=== PATIENT | female | born 1960 | race Caucasian/White ===

== ENCOUNTER 2017-03-11 20:32 | Inpatient (IN) ==
--- NOTE | 2017-03-11 21:08 | Emergency Department Note ---
Radha Velázquez Brittany, am scribing for, and in the presence of, Timi Waldrop MD 21:04. Palma Velázquez Charles R, MD, personally performed the services described in this documentation, ascribed by Zuleima Garcia in my presence, and it is both accurate and complete . Arrival - Arrival Chief Complaint: Abdominal / Flank Pain Stated Complaint: abd pain ED Nursing Triage Note: transfer from [facility] via ems with dx of early appendicitis. was given zofran 8mg, dilaudid 2mg [employer] and zosyn 3,375 infusing upon arrival to er. Mode of Arrival: Stretcher Limitations: No Limitations Source: Patient Time Seen by Provider: 03/11/17 20:50 - History of Present Illness HPI Narrative: This is a 56 y/o white female,who presents to the ED by EMS for further evaluation of acute appendicitis. She was transferred from [facility] ER. She notes abdominal pain which started yesterday. She notes vomiting but is afebrile. Per EMS, pt was given 8mg Zofran, 2MG Dilaudid and 3,375 infusing Zosyn en route. Pt has no other complaints/pain in the ED at this time. Pt has a PMHx of recurring UTIs, liver problems, pancreatitis, anemia, back/neck problems, HTN, and dyslipidemia. Pt has had a cholecystectomy, EGD, colonoscopy , and . Pt has a family medical Hx of cancer, diabetes, heart disease, HTN, and stroke. Onset (ago): day(s) (Started yesterday) Consistency: constant Severity: moderate, severe Allergies/Adverse Reactions: Allergies Allergy/AdvReac Type Severity Reaction Status Date / Time No Known Allergies Allergy Verified 04/06/15 12:21 Home Medications: Home Medications Medication Instructions Recorded Confirmed Type ALPRAZolam [Xanax] 1 mg PO DAILY 04/06/15 06/08/15 History Atorvastatin [Lipitor] 20 mg PO BEDTIME 04/06/15 06/08/15 History Citalopram [CeleXA] 20 mg PO DAILY 04/06/15 06/08/15 History Hydrocodone/Acetaminophen [Lorcet 1 each PO BID PRN 04/06/15 06/08/15 History Hd 10-325 mg Tablet] Lisinopril [Prinivil] 10 mg PO DAILY 04/06/15 06/08/15 History Ondansetron Odt Tab [Zofran Odt] 4 mg PO Q6H 04/06/15 06/08/15 History Hydrocodone/Acetaminophen [Lorcet 1 each PO Q6H 06/08/15 06/08/15 History Hd 10-325 mg Tablet] Review of System - Review of System 12 point system: reviewed and no additional remarkable complaints except as stated - Review of System Constitutional: Absent: fever Gastrointestinal: Present: abdominal pain, nausea, vomiting Medical,Surgical,& Family Hx - Medical History Cardio: History of: Hypertension No history of: ID Psychological: History of: Anxiety Disorders, Depression Neurology: No history of: Seizures Endocrine: History of: Dyslipidemia Genitourinary: History of: Recurring Urinary Tract Infections Gastrointestinal: History of: Gastrointestinal Bleed, Liver Problems, Pancreatitis, Gastrointestinal Cancer Musculoskeletal: History of: Back/Neck Problems (BACK), Musculoskeletal Problems (arthritis in hands) Hematology: History of: Anemia No history of: Blood Transfusion Reaction Other: No history of: Anesthesia Reactions - Surgical History Cardiac Surgeries: Patient Denies: Cardiac Catheterization Abdominal Surgeries: Surgical HX of: Cholecystectomy, Colonoscopy, EGD Patient denies: Appendectomy Reproductive Surgeries: Surgical HX of;: Section Orthopedic Surgeries: Patient denies;: Orthopedic Surgery - Family History Family History: Reports;: Family Cancer (brother-unknown cancer), Family Diabetes (FAMILY), Family Heart Disease (FATHER,MOTHER), Family Hypertension, Family Stroke (FATHER,BROTHER) - Social History Smoking Status: Never smoker Frequency of Alcohol Use: None Type of Drug Use: None Exam Vital Signs: Vital Signs Temperature 97.6 F 03/11/17 20:39 Pulse Rate 67 03/11/17 20:39 Respiratory Rate 15 03/11/17 20:39 Blood Pressure 160/85 03/11/17 20:39 O2 Sat by Pulse Oximetry 97 03/11/17 20:39 - General General appearance: alert, in no apparent distress - Head Head exam: Present: atraumatic, normocephalic, normal inspection - Eye Eye exam: Present: normal appearance, PERRL, EOMI. Absent: nystagmus, miosis, mydriasis - ENT ENT exam: Present: normal exam, normal oropharynx, mucous membranes moist, TM's normal bilaterally, normal external ear exam - Neck Neck exam: Present: normal inspection, full ROM, trachea midline. Absent: tenderness, meningismus, lymphadenopathy, thyromegaly - Chest Chest inspection: Present: normal inspection, symmetric chest wall rise. Absent : tenderness, rash, abscess - Respiratory Respiratory exam: Present: normal lung sounds bilaterally. Absent: prolonged expiratory phase, rales, respiratory distress, rhonchi, stridor, wheezes - Cardiovascular Cardiovascular exam: Present: regular rate, normal rhythm, normal heart sounds. Absent: murmur, rubs, gallop, clicks - Abdominal Exam Abdominal exam: Present: soft, tenderness (RLQ tenderness), normal bowel sounds , tenderness at McBurney's Point. Absent: distention, guarding, rebound, rigidity, Paulino's sign - Rectal Exam Rectal exam: Present: deferred - Extremities Exam Extremities exam: Present: normal inspection, full ROM, normal capillary refill. Absent: tenderness, pedal edema, joint swelling, calf tenderness - Back Exam Back exam: Present: normal inspection, full ROM. Absent: tenderness, muscle spasm, rashes - Neurological Exam Neurological exam: Present: alert, oriented X3, CN II-XII intact. Absent: motor sensory deficit - Psychiatric Psychiatric exam: Present: normal affect, normal mood. Absent: depressed, agitated, anxious, flat affect, manic - Skin Skin exam: Present: warm, dry, intact, normal color. Absent: rash, cyanosis, diaphoresis, erythema, pallor, mottled Course - Consultations Consultation #1: Dr. Dawkins will admit patient Time: 21:09 Results - Labs Lab Results: I have reviewed the patients labs Labs: All labs and CT scan was reviewed from previous facility Disposition Clinical Impression: Abdominal pain, Acute appendicitis Case discussed with: patient Disposition: Still a Patient Condition: Stable Time of Disposition: 21:10
[2017-03-11] MEDS ORDERED: HYDROmorphone 2 MG/1 ML VIAL ONE (22:11)
[2017-03-11] MEDS ORDERED: HYDROmorphone 2 MG/1 ML VIAL IV ONE (22:15)
[2017-03-11] MEDS ORDERED: ACETAMINOPHEN 325 MG TABLET PO PRN (22:40)
[2017-03-11] MEDS ORDERED: ONDANSETRON 4 MG/2 ML VIAL IV PRN (22:40)
[2017-03-11] MEDS: SODIUM CHLORIDE 0.9% 1,000 ML IV SCH (23:44)
[2017-03-11] MEDS: PIPERACILLIN/TAZOBACTAM 3,375 MG in SODIUM CHLORIDE 0.9% 100 ML IV SCH (23:47)
[2017-03-12] MEDS ORDERED: ALPRAZolam 0.5 MG TABLET PO PRN (01:08)
--- NOTE | 2017-03-12 01:16 | General Surg History&Physical ---
Assessment and Plan (1) Acute appendicitis Status: Acute Assessment and plan: This patient has a clinical diagnosis of acute appendicitis. She has some abnormalities in her appendix on CT scan she is focally tender in the right lower quadrant. I do not see that he urinalysis was performed. I will order this to make sure we are not dealing with any pathology but I think we need to at least do a diagnostic laparoscopy and plan on removing the appendix. I have discussed this with the patient and recommended laparoscopic appendectomy as well as diagnostic laparoscopy. I discussed the risks, benefits, and alternatives of the operation, and the expected outcomes have been reviewed. The patient would like to proceed with the operation. She will be treated with antibiotics tonight and this will be done in the morning. Current Visit: Yes History of Present Illness Chief complaint: Abdominal pain History of present illness: Ms. Quesada is a 56 year old female with history of sphincter of Oddi dysfunction that has been treated with ERCP and sphincterotomy by Dr. Myers in the past who presents with 2 days of worsening right lower quadrant pain and [facility] an outside [facility]. CT scan performed revealed stable chronic dilation of the bile duct with intrahepatic ductal dilation and also had the findings of a dilated fluid- filled proximal appendix on CT scan with minimal surrounding inflammatory changes if any. Patient was admitted with presumed diagnosis of appendicitis to my service for further management and treatment. She does say that this pain is much different than her prior episodes of sphincter of Oddi dysfunction type pain. She has never had pain like this before. Home Medications Medication Instructions Recorded Confirmed Type ALPRAZolam [Xanax] 1 mg PO BID PRN 04/06/15 03/11/17 History Atorvastatin [Lipitor] 20 mg PO BEDTIME 04/06/15 03/11/17 History Citalopram [CeleXA] 20 mg PO DAILY 04/06/15 03/12/17 History Hydrocodone/Acetaminophen [Lorcet 1 each PO BID PRN 04/06/15 03/11/17 History Hd 10-325 mg Tablet] Lisinopril [Prinivil] 10 mg PO DAILY 04/06/15 03/11/17 History Ondansetron Odt Tab [Zofran Odt] 4 mg PO Q6H 04/06/15 03/12/17 History Morphine ER Tab [Ms Contin] 1 mg PO Q12HR 03/11/17 03/12/17 History Allergies Allergy/AdvReac Type Severity Reaction Status Date / Time No Known Allergies Allergy Verified 04/06/15 12:21 Medical,Surgical,& Family Hx - Medical History Cardio: History of: Hypertension No history of: CO Psychological: History of: Anxiety Disorders, Depression Neurology: No history of: Seizures HEENT: History of: HEENT Problems (" stats with a sore throat") Endocrine: History of: Dyslipidemia Genitourinary: History of: Recurring Urinary Tract Infections Gastrointestinal: History of: Gastrointestinal Bleed, Hemorrhoids, Liver Problems, Pancreatitis No history of: Gastrointestinal Cancer Musculoskeletal: History of: Back/Neck Problems (BACK), Musculoskeletal Problems (arthritis in hands and back) Hematology: History of: Anemia No history of: Blood Transfusion Reaction Other: No history of: Anesthesia Reactions - Surgical History Cardiac Surgeries: Patient Denies: Cardiac Catheterization Abdominal Surgeries: Surgical HX of: Cholecystectomy, Colonoscopy, EGD Patient denies: Appendectomy Reproductive Surgeries: Surgical HX of;: Section Orthopedic Surgeries: Patient denies;: Orthopedic Surgery - Family History Family History: Reports;: Family Cancer (brother-unknown cancer), Family Diabetes (FAMILY), Family Heart Disease (FATHER,MOTHER), Family Hypertension, Family Stroke (FATHER,BROTHER) - Social History Smoking Status: Never smoker Frequency of Alcohol Use: None Type of Drug Use: None Exam - Constitutional Vitals: Period Temp Pulse Resp BP Sys/Patel Pulse Ox Last 24 Hr 97.3 F-97.6 F 62-67 11-18 123-160/73-92 94-97 General appearance: no acute distress, over weight - Head Head exam: Present: normal inspection, normocephalic - Eye Eye exam: Present: EOMI. Absent: scleral icterus Pupils: Present: OLIVE - ENT ENT exam: Present: normal exam Mouth exam: Present: normal external inspection, normal voice - Neck Neck exam: Present: normal inspection, trachea midline - Respiratory Respiratory exam: Present: clear to auscultation bilaterally. Absent: accessory muscle use - Cardiovascular Cardiovascular exam: Present: RRR. Absent: systolic murmur, tachycardia - GI/Abdominal GI/Abdominal exam: Present: normal bowel sounds, tenderness (There is focal tenderness in the right lower quadrant with rebound), rebound, soft. Absent: guarding - Extremities Exam Extremities exam: Present: normal inspection, normal capillary refill - Back Exam Back exam: Present: normal inspection - Neurological Exam Neurological exam: Present: alert, oriented X3 Speech: Present: normal - Skin Skin exam: Present: normal color, warm - Constitutional Constitutional: Present: as per HPI - EENT Nose, mouth and throat: Present: as per HPI - Cardiovascular Cardiovascular: Present: as per HPI - Respiratory Respiratory: Present: as per HPI - Gastrointestinal Gastrointestinal: Present: as per HPI - Genitourinary Genitourinary: Present: as per HPI - Musculoskeletal Musculoskeletal: Present: as per HPI - Neurological Neurological: Present: as per HPI - Endocrine Endocrine: Present: as per HPI Hematologic/Lymphatic: Present: as per HPI Quality Measures - VTE Contraindication to Pharmacological VTE Prophylaxis: Clinical assessment deems Pt at low risk, no prophalaxis needed Results - Diagnostic Findings Procedure: CT Abdomen and Pelvis: image reviewed by me, report reviewed by me ( The appendix is dilated proximally with no significant surrounding inflammatory changes.)
[2017-03-12] MEDS ORDERED: ONDANSETRON ODT 4 MG TABLET PO PRN (01:30)
[2017-03-12] MEDS: HYDROmorphone 2 MG/1 ML VIAL IV PRN ×3 (01:45→14:07)
[2017-03-12 06:06] LABS: Apearance,Urine CLEAR (Clear); Bilirubin,Urine Negative (Negative); Blood, Urine Negative (Negative); Glucose,Urine (UA) Negative (Negative); Ketones,Urine Negative (Negative); Nitrite,Urine Negative (Negative); Protein,Urine Negative; RBC,Urine <1 /HPF (0-4); Squamous Epithelial Cell,Urine Occasional /HPF (0-10); Urine Color Yellow (Yellow); Urine Specific Gravity 1.019 (1.001-1.035); WBC,Urine 1 /HPF (0-6)
[2017-03-12] MEDS ORDERED: BUPIVACAINE MPF 0.25% /EPI 30 ML VIAL ONE (06:26)
[2017-03-12] MEDS ORDERED: LIDOCAINE 1%/EPI INJ 20 ML VIAL ONE (06:26)
[2017-03-12] MEDS ORDERED: LORazepam 0.5 MG TABLET PO ONE (06:30)
[2017-03-12] MEDS ORDERED: FAMOTIDINE 20 MG TABLET PO ONE (06:30)
[2017-03-12] MEDS: PIPERACILLIN/TAZOBACTAM 3,375 MG in SODIUM CHLORIDE 0.9% 100 ML IV SCH (07:10)
[2017-03-12 07:21] LABS: Basophils % 0.5 % (0.0-0.8); Eosinophils % 0.8 % (0.00-10.9); Hematocrit 39.1 VOL% (35.7-47.0); Hemoglobin 12.8 GM/DL (12.0-16.0); Lymphocytes # 1.2 10*3/uL (1.4-4.0); Lymphocytes % 29.4 % (21.3-54.2); Mean Corpuscular HGB Conc 32.7 GM/DL (32-36); Mean Corpuscular Hemoglobin 29 PG (27-34); Mean Corpuscular Volume 88.5 FL (87-102); Mean Platelet Volume 10.1 FL (9.6-12.0); Monocytes # 0.3 10*3/uL (0.11-0.8); Monocytes % 7.7 % (1.7-12.7); Neutrophils # 2.4 10*3/uL (1.4-7.4); Neutrophils % 61.6 % (38.7-73.9); Platelet Count 140 T/CUMM (130-400); Red Blood Count 4.42 MC/CUMM (3.8-5.5); Red Cell Distribution Width 12.4 % (9.3-17.3); White Blood Count 3.9 T/CUMM (4-12)
[2017-03-12 07:50] LABS: Albumin 3.6 G/DL (3.4-5.0); Calcium 8.8 MG/DL (8.5-10.1); Magnesium 2.2 MG/DL (1.8-2.4); Osmolality,Calculated 280.1 MOS/KG (273-304); Potassium 4.5 MMOL/L (3.5-5.1); Total Protein 6.4 G/DL (6.4-8.3)
[2017-03-12] MEDS ORDERED: PANTOPRAZOLE 40 MG VIAL IV SCH (09:00)
[2017-03-12] MEDS ORDERED: CITALOPRAM 20 MG TABLET PO SCH (09:00)
--- NOTE | 2017-03-12 09:57 | XRay Report ---
Exam: XR chest 1V portable Date: 03/12/2017 4:00 AM Indication: Shortness of breath Comparison: None Technical: AP Findings: Cardiomegaly present. Low volume effusions atelectatic change present. No obvious pneumothorax. Prior cholecystectomy clips are present. Bony structures reveal no acute findings. Impression: 1. Cardiomegaly with minimal atelectatic change and/or infiltrate or effusions in the bases. PROCEDURE INTERPRETED AT [facility] DEPARTMENT OF RADIOLOGY Final Report Signed by: Dr. Curtis Flores
--- NOTE | 2017-03-12 09:59 | XRay Report ---
Exam: XR abdomen 2V Date: 03/12/2017 4:00 AM Indication: Abdominal pain Comparison: 03/11/2017 Technical:Supine and decubitus image Findings: Scattered stool and debris within the bowel. Surgical clips present in the right upper and lower quadrant region. The liver shadow and spleen shadow are partially demonstrated. The renal shadows are obscured. Lateral marginal osteophytes present thoracic lumbar spine. Impression: 1. Previous surgery right upper and lower quadrant 2. Mild constipation 3. Degenerative spondylosis changes thoracolumbar spine PROCEDURE INTERPRETED AT [facility] DEPARTMENT OF RADIOLOGY Final Report Signed by: Dr. Curtis Flores
[2017-03-12] MEDS ORDERED: TISSUE ADHESIVE 1 EACH APPLICATOR TOP ONE (10:17)
--- NOTE | 2017-03-12 10:27 | Operative Note ---
Pre-op diagnosis: acute appendicitis Post-op diagnosis: other (1. acute appendicitis 2. pelvic adhesions) Procedure: Preoperative diagnosis Acute appendicitis Postoperative diagnosis 1. Acute appendicitis 2. Pelvic adhesions Procedures performed Laparoscopic appendectomy Laparoscopic lysis of adhesions Findings There was a single adhesion between a band of omentum and the adnexa on the patient's right side with no associated mass. There was a piece of bowel wrapped around this that was not dilated but appeared to have been previously potentially involved with an internal hernia here and the adhesion was lysed with electrocautery and scissors. The appendix was infected and inflamed and was removed. Blood loss 5 mL Anesthesia GETA Complications None apparent Specimen Appendix Indications Acute appendicitis CT proven. I discussed the option of medical treatment with antibiotics alone with the patient in detail. I discussed the failure rate of 25% with antibiotics alone and the requirement to stay in the hospital for several days of antibiotics and observation. The patient decided to proceed with laparoscopic appendectomy. I discussed the risks, benefits, and alternatives of the operation with the patient, and the expected outcomes were reviewed. In particular, I discussed the risk of bleeding, infection, wound complications, bowel obstruction, and ureteral injury. The patient elects to proceed with the operation. Description of procedure The patient was taken to the operating room and transferred to the operating table in the supine position. Pressure points were padded and SCDs were placed to bilateral lower extremities. General endotracheal anesthesia was administered. The abdominal hair was clipped with electric clippers and the abdomen was prepped with chlorhexidine and draped sterilely. Preoperative antibiotics were administered, and a timeout was performed. The abdomen was entered in the supraumbilical location in the right paramedian position with a Veress needle. Local anesthetic was administered and a 12 mm skin incision was made with an 11 blade scalpel. Penetrating towel clips were used to grasp the abdominal wall skin and a Veress needle was used into the peritoneal cavity. Intra-peritoneal location was confirmed with a double click technique. Aspiration was negative. Saline drop test confirmed intraperitoneal location. The abdomen was insufflated to 15 mmHg with initial insufflation pressure of 2 mmHg. The Veress needle was removed and a 12 mm trocar was placed bluntly. Diagnostic laparoscopy was then performed. There was no evidence of Veress needle or trocar injury. There was a pelvic adhesion between a piece of omentum causing an omental band down onto the pelvis near the adnexa and right pelvic sidewall. The patient was placed in Trendelenburg and left side rolled down position. Under direct visualization, and after local anesthetic was administered, 2 additional 5 mm trochars were placed in the suprapubic position in the left lower quadrant position. The bowel was then moved out of the right lower quadrant and the appendix was visualized. The omental band adhesion was divided laparoscopically with scissors and electrocautery. There were no masses in the right pelvis and this appeared to be simple adhesive disease. The appendix appeared acutely inflamed but not perforated. There is no abscess or fluid in the pelvis or the right paracolic gutter. The appendix was grasped and retracted towards the patient's feet in a window in the appendiceal mesentery was created with [place] dissector. TARAH stapler was then used to transect the base of the appendix. The appendiceal mesentery was also divided using vascular staple loads. The right lower quadrant was focally suction irrigated. This was done until the effluent was clear. The appendix was placed in Endo Catch bag and removed through the 12 mm trocar site. The CO2 was then released from the abdomen and the trochars were removed. Skin incisions were closed with 4-0 Monocryl and sterile skin glue was applied. The patient was awakened from anesthesia and transferred to recovery. Postoperative plan Diet as tolerated Follow-up in 2 weeks Anesthesia: [place] local Surgeon / Physician: Kennedy Dawkins Estimated blood loss: minimal Specimens: other (appendix) Condition: stable Disposition: PACU Results - Labs CBC & BMP: 03/12/17 06:46 03/12/17 06:46 Discharge Plan - Discharge Data Disposition: Disch To Home/Self Care Condition at Discharge: Stable Discharge Diet: advance to your usual diet Activity: resume usual activities as tolerated, no lifting Hygiene: may shower Weight Bearing at Discharge: weight bear as tolerated Driving: other (Do not drive or operate heavy machinery for at least 24 hours and after you are off of narcotic pain medications.) Contact your physician if you experience:: fever over 101, Difficulty voiding, Redness or swelling, Nausea/Vomiting, Shortness of breath, Bleeding, pain uncontrolled by pain medications Wound / Dressing Care Instructions: It is okay to shower. Do not scrub the incision aggressively or submerge it under water. - Discharge Medications New HYDROcodone/ACETAMIN 7.5-325 [[place] 7.5-325] 1 tablet PO Q4H PRN #30 tablet PRN Reason: Pain Moderate (4-7) Continue Ondansetron Odt Tab [Zofran Odt] 4 mg PO Q6H ALPRAZolam [Xanax] 1 mg PO BID PRN PRN Reason: Anxiety Lisinopril [Prinivil] 10 mg PO DAILY Hydrocodone/Acetaminophen [Lorcet Hd 10-325 mg Tablet] 1 each PO BID PRN PRN Reason: Pain Atorvastatin [Lipitor] 20 mg PO BEDTIME Citalopram [CeleXA] 20 mg PO DAILY Morphine ER Tab [Ms Contin] 1 mg PO Q12HR - Follow Up or Referral Follow Up: Kennedy Dawkins MD [Physician] - 2 Weeks - Forms/Instructions
[2017-03-12] MEDS ORDERED: KETOROLAC 30 MG/1 ML VIAL ONE (10:34)
[2017-03-12] MEDS ORDERED: DESFLURANE 1 UNIT/15 MINUTE INH ONE (10:34)
[2017-03-12] MEDS ORDERED: ONDANSETRON 4 MG/2 ML VIAL ONE (10:34)
[2017-03-12] MEDS ORDERED: GLYCOPYRROLATE 0.4 MG/2 ML VIAL ONE (10:34)
[2017-03-12] MEDS ORDERED: MIDAZOLAM 2 MG/2 ML VIAL ONE (10:34)
[2017-03-12] MEDS ORDERED: fentaNYL 100 MCG/2 ML VIAL ONE (10:34)
[2017-03-12] MEDS ORDERED: PROPOFOL 200 MG/20 ML VIAL IV ONE (10:34)
[2017-03-12] MEDS ORDERED: NEOSTIGMINE 10 MG/10 ML VIAL ONE (10:34)
[2017-03-12] MEDS ORDERED: ROCURONIUM 100 MG/10 ML VIAL IV ONE (10:35)
[2017-03-12] MEDS ORDERED: ONDANSETRON 4 MG/2 ML VIAL IV PRN (10:49)
[2017-03-12] MEDS ORDERED: HYDROmorphone 2 MG/1 ML VIAL IV PRN (10:49)
[2017-03-12] MEDS ORDERED: LACTATED RINGERS 1,000 ML IV SCH (11:00)
[2017-03-12] MEDS: SODIUM CHLORIDE 0.9% 1,000 ML IV SCH (12:03)
--- NOTE | 2017-03-12 13:17 | Event Note ---
Postop check The patient is sitting up in bed. She has taken a couple bites of ice cream and sips of water without nausea or vomiting. She is still rather sleepy at the time of my evaluation. She reports her pain is controlled. She has not ambulated at this time. Objective: Vital signs are stable. Nasal cannula in place Head: Atraumatic Heart: Regular rate and rhythm Lungs: Clear to auscultation bilaterally Abdomen: Surgical incisions are clean, dry and intact. Abdomen is soft and appropriately tender postop. No peritoneal signs. Bowel sounds are present. Extremities: Calves are soft and nontender bilaterally Pathology of appendix pending Assessment and plan Patient is postop day #0 status post laparoscopic appendectomy and laparoscopic lysis of pelvic adhesions. Patient has received perioperative antibiotics. Once she has weaned from oxygen, is tolerating oral intake, voiding without difficulty, and ambulating with adequate pain mgmt, she may discharge and follow -up with Dr. Dawkins in 2 weeks as scheduled with oral analgesics.
[2017-03-12 19:54] VITALS: BP 106/75
[2017-03-12] MEDS ORDERED: ATORVASTATIN 20 MG TABLET PO SCH (21:00)
--- NOTE | 2017-03-13 12:23 | Pathology Report from [facility] ---
[facility] ACCESSION # : [id number] PATIENT NAME : Raul Davis ORDERING DR : Kennedy Dawkins MD CLINICAL HX: Appendicitis POST-OP DX: Same SPECIMEN INFO: Appendix GROSS DESCRIPTION: Received in formalin labeled RAUL DAVIS & APPENDIX is an appendix with attached appendiceal fat. The appendix measures 4.5 x up to 0.7 cm. The serosa is pink busby. The cut surfaces reveal possible lymph nodes adjacent to the appendix. No fecaliths of perforations are identified. Tax Clerk sections are submitted in one cassette. DIAGNOSIS FOR RAUL DAVIS: APPENDIX, APPENDECTOMY: Non-acute appendix with fibrous obliteration of distal appendix, and chronic inflammation with eosinophils. COLLECTED DATE: 03/12/[address] [facility] REPORT DATE: 03/13/2017 ELECTRONICALLY SIGNED BY: Nini Macias M.D. 03/13/2017 - 9:46:02 [email or web address]
--- NOTE | 2017-03-14 15:05 | Anesthesia Post-Op ---
Anesthesia Post OP - Post Ansesthetic Evaluation Patient seen in post op: Yes Resp: within normal limits CV: within normal limits Mental: within normal limits Temp: within normal limits [id number]: within normal limits Nausea and Vomiting: within normal limits Pain: within normal limits Patient seen at: date (03/12/17), time ([id number])
== END 2017-03-12 21:00 | disposition home or self-care (01) | DRG 337 ==
LOC: EDBD → EDUNIT# → N.ED 20:32 → N.EDINP 21:20 → N.3E 22:11
PROVIDERS: ADMIT Surgery; ATTEND Surgery

== ENCOUNTER 2018-10-06 15:50 | Inpatient (IN) ==
[2018-10-06] MEDS: SODIUM CHLORIDE 0.9% 1,000 ML IV SCH (17:36)
[2018-10-06] MEDS: MORPHINE 4 MG/1 ML VIAL IV PRN (20:46)
[2018-10-06] MEDS: ONDANSETRON 4 MG/2 ML VIAL IV PRN (20:46)
[2018-10-06] MEDS: ALPRAZolam 0.5 MG TABLET PO SCH (22:36)
[2018-10-07] MEDS: SODIUM CHLORIDE 0.9% 1,000 ML IV SCH ×3 (02:33→19:21)
[2018-10-07] MEDS: ONDANSETRON 4 MG/2 ML VIAL IV PRN (02:34)
[2018-10-07] MEDS: MORPHINE 4 MG/1 ML VIAL IV PRN ×5 (02:34→21:04)
[2018-10-07 07:18] LABS: Basophils % 0.6 % (0.0-0.8); Eosinophils # 0.1 10*3/uL (0.0-0.87); Eosinophils % 1.9 % (0.00-10.9); Hematocrit 37.2 VOL% (35.7-47.0); Lymphocytes # 1.1 10*3/uL (1.4-4.0); Lymphocytes % 33.1 % (21.3-54.2); Mean Corpuscular HGB Conc 32.3 GM/DL (32-36); Mean Corpuscular Hemoglobin 28 PG (27-34); Mean Corpuscular Volume 87.7 FL (87-102); Mean Platelet Volume 10.5 FL (9.6-12.0); Monocytes # 0.2 10*3/uL (0.11-0.8); Monocytes % 6.6 % (1.7-12.7); Neutrophils # 1.8 10*3/uL (1.4-7.4); Neutrophils % 57.8 % (38.7-73.9); Platelet Count 152 T/CUMM (130-400); Red Blood Count 4.24 MC/CUMM (3.8-5.5); Red Cell Distribution Width 12.6 % (9.3-17.3); White Blood Count 3.2 T/CUMM (4-12)
[2018-10-07 07:50] LABS: Alanine Aminotransferase 13 U/L (13-56); Albumin 3.3 G/DL (3.4-5.0); Alkaline Phosphatase 197 U/L (45-117); Amylase 14 U/L (25-115); Aspartate Amino Transferase 14 U/L (0-37); Bilirubin,Total < 0.39 MG/DL (0.2-1.0); Blood Urea Nitrogen 8 MG/DL (7-18); Calcium 8.4 MG/DL (8.5-10.1); Glucose 87 MG/DL (74-106); Osmolality,Calculated 275.4 MOS/KG (273-304); Potassium 3.8 MMOL/L (3.5-5.1); Sodium 140 MMOL/L (136-145); Thyroid Stimulating Hormone 0.604 uIU/ml (0.358-3.74); Total Protein 6.3 G/DL (6.4-8.3)
[2018-10-07 07:57] LABS: Lipase < 50.0 U/L (73-393)
[2018-10-07 08:32] LABS: Apearance,Urine CLEAR (Clear); Bilirubin,Urine Negative (Negative); Blood, Urine Negative (Negative); Glucose,Urine (UA) Negative (Negative); Ketones,Urine Negative (Negative); Mucus,Urine Occasional /LPF (Occasional); Nitrite,Urine Negative (Negative); Protein,Urine Negative; RBC,Urine 2 /HPF (0-4); Urine Color Amber (Yellow); Urine Specific Gravity 1.013 (1.001-1.035); Urine Urobilinogen < 2.0 EU/DL (0.2-1.0); WBC,Urine 1 /HPF (0-6)
[2018-10-07] MEDS: PANTOPRAZOLE 40 MG TABLET PO SCH (09:18)
[2018-10-07] MEDS: ALPRAZolam 0.5 MG TABLET PO SCH (09:18)
[2018-10-08] MEDS: MORPHINE 4 MG/1 ML VIAL IV PRN ×4 (01:50→19:37)
[2018-10-08] MEDS: SODIUM CHLORIDE 0.9% 1,000 ML IV SCH ×3 (03:20→19:30)
[2018-10-08] MEDS: ONDANSETRON 4 MG/2 ML VIAL IV PRN ×3 (06:35→19:18)
[2018-10-08 06:47] LABS: Basophils % 0.5 % (0.0-0.8); Eosinophils # 0.1 10*3/uL (0.0-0.87); Eosinophils % 1.8 % (0.00-10.9); Hematocrit 37.1 VOL% (35.7-47.0); Hemoglobin 11.8 GM/DL (12.0-16.0); Immature Granulocytes % 0.3 %; Immature Granulocytes Absolute 0.01 #; Lymphocytes # 1.4 10*3/uL (1.4-4.0); Lymphocytes % 35.2 % (21.3-54.2); Mean Corpuscular HGB Conc 31.8 GM/DL (32-36); Mean Corpuscular Hemoglobin 28 PG (27-34); Mean Corpuscular Volume 89.2 FL (87-102); Mean Platelet Volume 10.6 FL (9.6-12.0); Monocytes # 0.3 10*3/uL (0.11-0.8); Monocytes % 7.3 % (1.7-12.7); Neutrophils # 2.1 10*3/uL (1.4-7.4); Neutrophils % 54.9 % (38.7-73.9); Platelet Count 163 T/CUMM (130-400); Red Blood Count 4.16 MC/CUMM (3.8-5.5); Red Cell Distribution Width 12.7 % (9.3-17.3); White Blood Count 3.8 T/CUMM (4-12)
[2018-10-08 07:13] LABS: Calcium 8.4 MG/DL (8.5-10.1); Osmolality,Calculated 278.3 MOS/KG (273-304); Potassium 3.7 MMOL/L (3.5-5.1)
[2018-10-08] MEDS ORDERED: LIDOCAINE 2% 5 ML VIAL ONE (09:00)
[2018-10-08] MEDS ORDERED: PROPOFOL 200 MG/20 ML VIAL IV ONE (09:00)
[2018-10-08] MEDS: PANTOPRAZOLE 40 MG TABLET PO SCH (15:08)
[2018-10-08] MEDS ORDERED: KETOROLAC 15 MG/1 ML VIAL IV ONE (15:28)
[2018-10-08] MEDS: ALPRAZolam 0.5 MG TABLET PO PRN (21:57)
[2018-10-09] MEDS: SODIUM CHLORIDE 0.9% 1,000 ML IV SCH ×3 (00:27→18:20)
[2018-10-09] MEDS: ONDANSETRON 4 MG/2 ML VIAL IV PRN ×4 (00:27→21:53)
[2018-10-09] MEDS: MORPHINE 4 MG/1 ML VIAL IV PRN ×6 (00:32→21:50)
[2018-10-09] MEDS: ALPRAZolam 0.5 MG TABLET PO PRN ×2 (08:17→20:27)
[2018-10-09] MEDS: PANTOPRAZOLE 40 MG TABLET PO SCH ×2 (08:17→20:27)
[2018-10-09] MEDS ORDERED: BISACODYL 5 MG TABLET PO ONE (13:55)
[2018-10-10] MEDS: SODIUM CHLORIDE 0.9% 1,000 ML IV SCH ×2 (02:59→09:25)
[2018-10-10] MEDS: MORPHINE 4 MG/1 ML VIAL IV PRN ×2 (03:00→06:40)
[2018-10-10] MEDS: ONDANSETRON 4 MG/2 ML VIAL IV PRN ×2 (03:03→06:44)
[2018-10-10 07:19] LABS: Basophils % 0.8 % (0.0-0.8); Eosinophils # 0.1 10*3/uL (0.0-0.87); Eosinophils % 2.3 % (0.00-10.9); Hematocrit 36.3 VOL% (35.7-47.0); Hemoglobin 11.9 GM/DL (12.0-16.0); Immature Granulocytes % 0.3 %; Immature Granulocytes Absolute 0.01 #; Lymphocytes # 1.5 10*3/uL (1.4-4.0); Lymphocytes % 37.3 % (21.3-54.2); Mean Corpuscular HGB Conc 32.8 GM/DL (32-36); Mean Corpuscular Hemoglobin 29 PG (27-34); Mean Corpuscular Volume 87.7 FL (87-102); Monocytes # 0.3 10*3/uL (0.11-0.8); Monocytes % 7.5 % (1.7-12.7); Neutrophils # 2.1 10*3/uL (1.4-7.4); Neutrophils % 51.8 % (38.7-73.9); Platelet Count 147 T/CUMM (130-400); Red Blood Count 4.14 MC/CUMM (3.8-5.5); Red Cell Distribution Width 12.4 % (9.3-17.3)
[2018-10-10 07:41] LABS: Calcium 8.5 MG/DL (8.5-10.1); Osmolality,Calculated 279.1 MOS/KG (273-304); Potassium 3.3 MMOL/L (3.5-5.1)
[2018-10-10] MEDS: ALPRAZolam 0.5 MG TABLET PO PRN (08:16)
[2018-10-10] MEDS: PANTOPRAZOLE 40 MG TABLET PO SCH (08:16)
[2018-10-10] MEDS ORDERED: POTASSIUM CHLORIDE 20 MEQ TABLET PO ONE (08:49)
[2018-10-10] MEDS ORDERED: amLODIPine 2.5 MG TABLET PO SCH (09:00)
[2018-10-10 12:35] VITALS: BP 145/77
== END 2018-10-10 14:52 | disposition home or self-care (01) | DRG 440 ==
LOC: N.5E 15:50 → SUATTDRO 15:50
PROVIDERS: ADMIT Internal Medicine; ATTEND Internal Medicine